=== PATIENT | female | born 1940 | race Caucasian/White ===

== ENCOUNTER 2017-09-08 14:23 | Emergency (ER) | payer MEDICARE, MEDICAID ==
[~2017-09-08] VITALS: Ht 165.1 cm; Wt 63.5 kg
[2017-09-08] MEDS ORDERED: B/P MED (14:46)
--- NOTE | 2017-09-08 18:52 | NUR ---
sbar report to luisito alexis. pt awaiting for mse.
[2017-09-08] MEDS ORDERED: HYDROMORPHONE 1 MG/1 ML DISP.SYRIN IM ONE (20:15)
[2017-09-08] MEDS ORDERED: PROMETHAZINE HCL 25 MG/1 ML VIAL IM ONE (20:15)
[2017-09-08] MEDS ORDERED: PROMETHAZINE HCL 25 MG/1 ML VIAL ONE (20:25)
[2017-09-08] MEDS ORDERED: HYDROMORPHONE 2 MG/1 ML DISP.SYRIN ONE (20:25)
--- NOTE | 2017-09-08 20:35 | NUR ---
Patient discharged to home in stable conditon. Written and verbal after care instructions given, as well as RX. 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 pt instructed to not drive d/t medications adminestered Patient verbalizes understanding of instructions.
[2017-09-08 20:37] VITALS: BP 173/89
== END 2017-09-08 20:35 | disposition home or self-care (01) ==
LOC: EDBD 14:25 → ER 14:25
DX: S52.202A Unspecified fracture of shaft of left ulna, initial encounter for closed fracture (principal); I10 Essential (primary) hypertension; I70.0 Atherosclerosis of aorta; W18.30XA Fall on same level, unspecified, initial encounter; Y92.89 Other specified places as the place of occurrence of the external cause; Y93.89 Activity, other specified; Y99.8 Other external cause status
CPT/HCPCS: 72100; 73080; A4663; J1170; J2550